=== PATIENT | male | born 1970 | race Caucasian/White ===

== ENCOUNTER 2019-01-07 12:28 | Observation (INO) | payer BC, OTHER ==
[2019-01-07] MEDS ORDERED: Sodium Chloride 0.9% 10 ML Syringe FLUSH PRN (12:38)
[2019-01-07] MEDS ORDERED: Sodium Chloride 0.9% 2.5 ML Syringe FLUSH PRN (12:38)
[2019-01-07] MEDS ORDERED: Diltiazem 25 MG/5 ML SDV IVPUSH ONE ×2 (12:38→14:16)
--- NOTE | 2019-01-07 13:18 | CR ---
Indication: Pain. Shortness breath. Technique: A single AP portable view of the chest was obtained. Comparison: None Findings: The heart is normal in size. The lungs are clear. No infiltrate, pleural effusion, or pneumothorax is identified. Impression: No acute cardiopulmonary process. Dictated by Marzena Staples MD @ Jan 07 2019 1:15PM Signed by Dr. Marzena Staples @ Jan 07 2019 1:16PM
[2019-01-07 13:23] LABS: CHLORIDE,CL 104 mmol/L (98-107); SODIUM,NA 140 mmol/L (136-148)
--- NOTE | 2019-01-07 14:27 | EDM.PDOC ---
ED HPI GENERAL MEDICAL PROBLEM - General Chief Complaint: Chest Pain Stated Complaint: CHEST PAIN Time Seen by Provider: 01/07/19 12:37 Source of Information: Reports: Patient History Limitations: Reports: No Limitations - History of Present Illness INITIAL COMMENTS - FREE TEXT/NARRATIVE: History of present illness: []Patient has a history of A. fib on metoprolol he started feeling palpitations this morning with chest pain radiating down his left arm. He denied any sweats, dizziness or syncope. By Dr. Jackson and apparently right before his appointment he converted to sinus rhythm. Review of systems: As per history of present illness and below otherwise all systems reviewed and negative. Past medical history: As per history of present illness and as reviewed below otherwise noncontributory. Surgical history: As per history of present illness and as reviewed below otherwise noncontributory. Social history: No reported history of drug or alcohol abuse. Family history: As per history of present illness and as reviewed below otherwise noncontributory. Physical exam: General: Well developed, well nourished in NAD HEENT: Atraumatic, normocephalic, pupils reactive, negative for conjunctival pallor or scleral icterus, mucous membranes moist, throat clear, neck supple, nontender, trachea midline. Lungs: Clear to auscultation, breath sounds equal bilaterally, chest nontender. Heart: S1S2, regular, negative for clicks, rubs, or JVD. Abdomen: NABS, Soft, nondistended, nontender. Negative for masses or hepatosplenomegaly. Negative for costovertebral tenderness. Pelvis: Stable nontender. Genitourinary: Deferred. Rectal: Deferred. Extremities: Atraumatic, negative for cords or calf pain. Neurovascular unremarkable. Neuro: Awake, alert, oriented. Cranial nerves II through XII unremarkable. Cerebellum unremarkable. Motor and sensory unremarkable throughout. Exam nonfocal. Skin:warm and dry Diagnostics: EKG, CBC, chemistry, troponin, chest x-ray Therapeutics: Diltiazem 2 doses ED Course: Patient with transient episode of hypotension and bradycardia after second dose of diltiazem Impression: A. fib Prescriptions: None Plan: Admit to [facility] telemetry for observation after hypotensive episode Definitive disposition and diagnosis as appropriate pending reevaluation and review of above. Chest Pain Score (Numeric/FACES): 8 - Related Data Allergies Allergy/AdvReac Type Severity Reaction Status Date / Time No Known Allergies Allergy Verified 01/07/19 12:36 Home Meds: Home Meds Metoprolol Succinate [Toprol XL 50mg] 50 mg PO DAILY 30 Days #30 tab.er [Rx] Aspirin 81 mg PO DAILY 01/07/19 [History] Levothyroxine [Synthroid] 50 mcg PO ACBREAKFAST 01/07/19 [History] Simvastatin 10 mg PO BEDTIME 01/07/19 [History] Past Medical History Cardiovascular History: Reports: Afib - Infectious Disease History Infectious Disease History: Reports: None - Past Surgical History GI Surgical History: Reports: Appendectomy Musculoskeletal Surgical History: Reports: Other (See Below) Other Musculoskeletal Surgeries/Procedures:: left elbow sx Social & Family History - Family History Family Medical History: Noncontributory - Tobacco Use Smoking Status *Q: Never Smoker - Caffeine Use Caffeine Use: Reports: Coffee - Recreational Drug Use Recreational Drug Use: No ED ROS GENERAL - Review of Systems Review Of Systems: ROS reveals no pertinent complaints other than HPI. ED EXAM, GENERAL - Physical Exam Exam: See Below (The history of present illness) Course - Vital Signs Last Recorded V/S: Last Vital Signs Temp 97.4 F 01/08/19 04:00 Pulse 90 01/08/19 06:48 Resp 20 01/08/19 06:48 BP 112/61 01/08/19 06:48 Pulse Ox 94 L 01/08/19 06:48 - Orders/Labs/Meds Orders: Active Orders 24 hr Category Date Time Status Cardiac Monitoring [RC] . DIRECTED Care 01/07/19 12:37 Active EKG Documentation Completion [RC] STAT Care 01/07/19 12:37 Active Sodium Chloride 0.9% [Saline Flush] Med 01/07/19 12:38 Active 10 ml FLUSH ASDIRECTED PRN Sodium Chloride 0.9% [Saline Flush] Med 01/07/19 12:38 Active 2.5 ml FLUSH ASDIRECTED PRN Saline Lock Insert [OM.PC] Stat Oth 01/07/19 12:37 Ordered Medication Orders Aspirin (Aspirin) 81 mg PO DAILY [facility] Enoxaparin Sodium (Lovenox) 40 mg SUBCUT Q24H [facility] Last Admin: 01/07/19 18:54 Dose: 40 mg Diltiazem HCl 125 mg/ Sodium (Chloride) 125 mls @ 5 mls/hr IV TITRATE [facility]; Protocol Levothyroxine Sodium (Synthroid) 50 mcg PO ACBREAKFAST [facility] Last Admin: 01/08/19 06:35 Dose: 50 mcg Metoprolol Succinate (Toprol Xl) 75 mg PO DAILY [facility] Last Admin: 01/08/19 06:35 Dose: 75 mg Simvastatin (Zocor) 10 mg PO BEDTIME [facility] Last Admin: 01/07/19 21:23 Dose: 10 mg Sodium Chloride (Saline Flush) 10 ml FLUSH ASDIRECTED PRN PRN Reason: Keep Vein Open Last Admin: 01/07/19 13:12 Dose: 10 ml Sodium Chloride (Saline Flush) 2.5 ml FLUSH ASDIRECTED PRN PRN Reason: Keep Vein Open Last Admin: 01/07/19 13:12 Dose: 2.5 ml Labs: Laboratory Tests 01/07/19 01/07/19 01/07/19 Range/Units 12:52 12:52 12:52 WBC 8.97 (4.0-11.0) K/uL RBC 5.35 (4.50-5.90) M/uL Hgb 16.8 (13.0-17.0) g/dL Hct 48.2 (38.0-50.0) % MCV 90.1 (80.0-98.0) fL MCH 31.4 (27.0-32.0) pg MCHC 34.9 (31.0-37.0) g/dL RDW Std Deviation 41.9 (28.0-62.0) fl RDW Coeff of Cyndi 13 (11.0-15.0) % Plt Count 149 L (150-400) K/uL MPV 11.20 (7.40-12.00) fL Neut % (Auto) 55.1 (48.0-80.0) % Lymph % (Auto) 34.1 (16.0-40.0) % [place] % (Auto) 9.7 (0.0-15.0) % Eos % (Auto) 0.9 (0.0-7.0) % Baso % (Auto) 0.2 (0.0-1.5) % Neut # (Auto) 4.9 (1.4-5.7) K/uL Lymph # (Auto) 3.1 H (0.6-2.4) K/uL [place] # (Auto) 0.9 H (0.0-0.8) K/uL Eos # (Auto) 0.1 (0.0-0.7) K/uL Baso # (Auto) 0.0 (0.0-0.1) K/uL Nucleated RBC % 0.0 /100WBC Nucleated RBCs # 0 K/uL Sodium 140 (136-148) mmol/L Potassium 4.6 (3.5-5.1) mmol/L Chloride 104 (98-107) mmol/L Carbon Dioxide 27.2 (21.0-32.0) mmol/L BUN 22 H (7.0-18.0) mg/dL Creatinine 1.3 (0.8-1.3) mg/dL Est Cr Clr Drug Dosing 70.97 mL/min Estimated GFR (MDRD) 58.7 ml/min Glucose 162 H (74-106) mg/dL Calcium 9.4 (8.5-10.1) mg/dL Magnesium 2.0 (1.8-2.4) mg/dL Total Bilirubin 0.4 (0.2-1.0) mg/dL AST 16 (15-37) IU/L ALT 53 (14-63) IU/L Alkaline Phosphatase 70 (46-116) U/L Troponin I < 0.050 (0.000-0.056) ng/mL Total Protein 7.6 (6.4-8.2) g/dL Albumin 3.7 (3.4-5.0) g/dL Globulin 3.9 (2.6-4.0) g/dL Albumin/Globulin Ratio 0.9 (0.9-1.6) Meds: Medications Generic Name Dose Route Start Last Admin Trade Name Freq PRN Reason Stop Dose Admin Aspirin 81 mg 01/08/19 09:00 Aspirin PO DAILY [facility] Enoxaparin Sodium 40 mg 01/07/19 18:00 01/07/19 18:54 Lovenox SUBCUT 40 mg Q24H [facility] Administration Diltiazem HCl 125 mg/ Sodium 125 mls @ 5 mls/hr 01/07/19 18:30 Chloride IV TITRATE [facility] Protocol 5 MG/HR Levothyroxine Sodium 50 mcg 01/08/19 07:30 01/08/19 06:35 Synthroid PO 50 mcg ACBREAKFAST [facility] Administration Metoprolol Succinate 75 mg 01/08/19 06:15 01/08/19 06:35 Toprol Xl PO 75 mg DAILY [facility] Administration Simvastatin 10 mg 01/07/19 21:00 01/07/19 21:23 Zocor PO 10 mg BEDTIME [facility] Administration Sodium Chloride 10 ml 01/07/19 12:38 01/07/19 13:12 Saline Flush FLUSH 10 ml ASDIRECTED PRN Administration Keep Vein Open Sodium Chloride 2.5 ml 01/07/19 12:38 01/07/19 13:12 Saline Flush FLUSH 2.5 ml ASDIRECTED PRN Administration Keep Vein Open Discontinued Medications Generic Name Dose Route Start Last Admin Trade Name Freq PRN Reason Stop Dose Admin Digoxin 250 mcg 01/07/19 18:17 01/07/19 18:55 Lanoxin IVPUSH 01/07/19 18:18 250 mcg ONETIME ONE Administration Diltiazem HCl 20 mg 01/07/19 12:38 01/07/19 13:03 Diltiazem IVPUSH 01/07/19 12:39 20 mg ONETIME ONE Administration Diltiazem HCl 20 mg 01/07/19 14:16 01/07/19 14:36 Diltiazem IVPUSH 01/07/19 14:17 20 mg ONETIME ONE Administration Sodium Chloride 1,000 mls @ 999 mls/hr 01/07/19 15:45 01/07/19 15:46 Normal Saline IV 01/07/19 16:45 999 mls/hr .BOLUS ONE Administration Sodium Chloride 1,000 mls @ 125 mls/hr 01/07/19 18:18 01/07/19 20:01 Normal Saline IV 01/08/19 02:17 125 mls/hr .Bolus ONE Administration Metoprolol Succinate 100 mg 01/08/19 09:00 Toprol Xl PO DAILY [facility] Metoprolol Tartrate 25 mg 01/07/19 18:18 01/07/19 18:52 Lopressor PO 01/07/19 18:19 25 mg ONETIME ONE Administration Departure - Departure Time of Disposition: 15:55 Disposition: Refer to Observation Condition: Good Clinical Impression: Atrial fibrillation Qualifiers: Atrial fibrillation type: paroxysmal Qualified Code(s): I48.0 - Paroxysmal atrial fibrillation - My Orders Last 24 Hours: My Active Orders 01/07/19 12:37 Cardiac Monitoring [RC] . DIRECTED EKG Documentation Completion [RC] STAT Saline Lock Insert [OM.PC] Stat 01/07/19 12:38 Sodium Chloride 0.9% [Saline Flush] 10 ml FLUSH ASDIRECTED PRN Sodium Chloride 0.9% [Saline Flush] 2.5 ml FLUSH ASDIRECTED PRN - Assessment/Plan Last 24 Hours: My Active Orders 01/07/19 12:37 Cardiac Monitoring [RC] . DIRECTED EKG Documentation Completion [RC] STAT Saline Lock Insert [OM.PC] Stat 01/07/19 12:38 Sodium Chloride 0.9% [Saline Flush] 10 ml FLUSH ASDIRECTED PRN Sodium Chloride 0.9% [Saline Flush] 2.5 ml FLUSH ASDIRECTED PRN
[2019-01-07] MEDS ORDERED: Sodium Chloride 0.9% 1,000 ML IV ONE ×2 (15:45→18:18)
[2019-01-07] MEDS ORDERED: Enoxaparin 40 MG/0.4 ML Syringe SUBCUT SCH (18:00)
[2019-01-07] MEDS ORDERED: Digoxin 500 MCG/2 ML Amp IVPUSH ONE (18:17)
[2019-01-07] MEDS ORDERED: Metoprolol Tartrate 25 MG Tab PO ONE (18:18)
[2019-01-07] MEDS ORDERED: Diltiazem 125 MG in Sodium Chloride 0.9% 100 ML IV SCH (18:30)
--- NOTE | 2019-01-07 18:36 | PCM.HP ---
H&P History of Present Illness - General Date of Service: 01/07/19 Admit Problem/Dx: Admission Diagnosis/Problem Admission Diagnosis/Problem Atrial fibrillation - History of Present Illness Initial Comments - Free Text/Narative: 48 yo male who presents with one day history of palpitations and dizziness. He has a history of atrial fibrillation but reports he had been in normal sinus rhythm during his last check up with Dr. Keys. He is on metoprolol and aspirin. In the ED he was noted to be in atrial fibrillation with rate of 100s to 130s. he was given IV diltiazem but this lower his blood pressure to 75 /48. He was given a bolus of IV fluids with normalization of blood pressure. His heart improved and he was transfered to the floor. Patient is now on the medical floor and is complaining of palpitations again. His heart rate is in the 100s to 130s. Chest Pain Score (Numeric/FACES): 8 - Related Data Allergies/Adverse Reactions: Allergies Allergy/AdvReac Type Severity Reaction Status Date / Time No Known Allergies Allergy Verified 01/07/19 12:36 Home Medications: Home Meds Metoprolol Succinate [Toprol XL 50mg] 50 mg PO DAILY 30 Days #30 tab.er [Rx] Aspirin 81 mg PO DAILY 01/07/19 [History] Levothyroxine [Synthroid] 50 mcg PO ACBREAKFAST 01/07/19 [History] Simvastatin 10 mg PO BEDTIME 01/07/19 [History] Past Medical History Cardiovascular History: Reports: Afib Respiratory History: Reports: Sleep Apnea Other Respiratory History: Uses CPAP - Infectious Disease History Infectious Disease History: Reports: None - Past Surgical History GI Surgical History: Reports: Appendectomy Musculoskeletal Surgical History: Reports: Other (See Below) Other Musculoskeletal Surgeries/Procedures:: left elbow sx Social & Family History - Family History Family Medical History: Noncontributory - Tobacco Use Smoking Status *Q: Never Smoker Second Hand Smoke Exposure: No - Caffeine Use Caffeine Use: Reports: None - Recreational Drug Use Recreational Drug Use: No H&P Review of Systems - Review of Systems: Review Of Systems: ROS reveals no pertinent complaints other than HPI. Exam - Exam Exam: See Below - Vital Signs Vital Signs: Last Vital Signs Temp 36.6 C 01/07/19 16:00 Pulse 76 01/07/19 16:00 Resp 18 01/07/19 16:00 BP 114/60 01/07/19 16:00 Pulse Ox 96 01/07/19 16:00 Weight: 7.34 kg - Exam General: Alert, Oriented HEENT: Mucosa Moist & [place] Lungs: Clear to Auscultation, Normal Respiratory Effort Cardiovascular: Irregular Rhythm, Tachycardia GI/Abdominal Exam: Normal Bowel Sounds, Soft, Non-Tender Extremities: Non-Tender, No Pedal Edema Skin: Warm, Dry, Intact Neurological: Cranial Nerves Intact Neuro Extensive - Mental Status: Alert - Patient Data Lab Results Last 24 hrs: Laboratory Results - last 24 hr 01/07/19 01/07/19 01/07/19 Range/Units 12:52 12:52 12:52 WBC 8.97 (4.0-11.0) K/uL RBC 5.35 (4.50-5.90) M/uL Hgb 16.8 (13.0-17.0) g/dL Hct 48.2 (38.0-50.0) % MCV 90.1 (80.0-98.0) fL MCH 31.4 (27.0-32.0) pg MCHC 34.9 (31.0-37.0) g/dL RDW Std Deviation 41.9 (28.0-62.0) fl RDW Coeff of Cyndi 13 (11.0-15.0) % Plt Count 149 L (150-400) K/uL MPV 11.20 (7.40-12.00) fL Neut % (Auto) 55.1 (48.0-80.0) % Lymph % (Auto) 34.1 (16.0-40.0) % [place] % (Auto) 9.7 (0.0-15.0) % Eos % (Auto) 0.9 (0.0-7.0) % Baso % (Auto) 0.2 (0.0-1.5) % Neut # (Auto) 4.9 (1.4-5.7) K/uL Lymph # (Auto) 3.1 H (0.6-2.4) K/uL [place] # (Auto) 0.9 H (0.0-0.8) K/uL Eos # (Auto) 0.1 (0.0-0.7) K/uL Baso # (Auto) 0.0 (0.0-0.1) K/uL Nucleated RBC % 0.0 /100WBC Nucleated RBCs # 0 K/uL Sodium 140 (136-148) mmol/L Potassium 4.6 (3.5-5.1) mmol/L Chloride 104 (98-107) mmol/L Carbon Dioxide 27.2 (21.0-32.0) mmol/L BUN 22 H (7.0-18.0) mg/dL Creatinine 1.3 (0.8-1.3) mg/dL Est Cr Clr Drug Dosing 70.97 mL/min Estimated GFR (MDRD) 58.7 ml/min Glucose 162 H (74-106) mg/dL Calcium 9.4 (8.5-10.1) mg/dL Magnesium 2.0 (1.8-2.4) mg/dL Total Bilirubin 0.4 (0.2-1.0) mg/dL AST 16 (15-37) IU/L ALT 53 (14-63) IU/L Alkaline Phosphatase 70 (46-116) U/L Troponin I < 0.050 (0.000-0.056) ng/mL Total Protein 7.6 (6.4-8.2) g/dL Albumin 3.7 (3.4-5.0) g/dL Globulin 3.9 (2.6-4.0) g/dL Albumin/Globulin Ratio 0.9 (0.9-1.6) Result Diagrams: 01/08/19 05:07 01/08/19 05:07 Problem List Initiated/Reviewed/Updated: Yes Orders Last 24hrs: Active Orders 24 hr Category Date Time Status Patient Status [ADT] Routine ADT 01/07/19 18:29 Ordered Antiembolic Devices [RC] PER UNIT ROUTINE Care 01/07/19 18:30 Ordered Cardiac Monitoring [RC] . DIRECTED Care 01/07/19 12:37 Active EKG Documentation Completion [RC] STAT Care 01/07/19 12:37 Active Oxygen Therapy [RC] PRN Care 01/07/19 18:29 Ordered Telemetry Monitoring [Cardiac Monitoring] [RC] Q8H Care 01/07/19 12:37 Active Up ad Anjali [RC] ASDIRECTED Care 01/07/19 18:29 Ordered VTE/DVT Education [RC] PER UNIT ROUTINE Care 01/07/19 18:29 Ordered Vital Signs [RC] Q4H Care 01/07/19 18:29 Ordered Regular Diet [DIET] Diet 01/08/19 Dinner Active BASIC METABOLIC PANEL,BMP [CHEM] AM Lab 01/08/19 05:11 Ordered CBC WITH AUTO DIFF [HEME] AM Lab 01/08/19 05:11 Ordered Diltiazem 125 mg Med 01/07/19 18:30 Ordered Sodium Chloride 0.9% [Normal Saline] 100 ml IV NOW Enoxaparin [Lovenox] Med 01/07/19 18:30 Ordered 40 mg SUBCUT Q24H Levothyroxine [Synthroid] Med 01/08/19 07:30 Ordered 50 mcg PO ACBREAKFAST Simvastatin [Zocor] Med 01/07/19 21:00 Ordered 10 mg PO BEDTIME Sodium Chloride 0.9% [Normal Saline] 1,000 ml Med 01/07/19 18:18 Active IV .Bolus Sodium Chloride 0.9% [Saline Flush] Med 01/07/19 12:38 Active 10 ml FLUSH ASDIRECTED PRN Sodium Chloride 0.9% [Saline Flush] Med 01/07/19 12:38 Active 2.5 ml FLUSH ASDIRECTED PRN Saline Lock Insert [OM.PC] Stat Oth 01/07/19 12:37 Ordered Sequential Compression Device [OM.PC] Per Unit Routine Oth 01/07/19 18:30 Ordered Resuscitation Status Routine Resus Stat 01/07/19 18:29 Ordered Medication Orders Sodium Chloride (Normal Saline) 1,000 mls @ 125 mls/hr IV .Bolus ONE Stop: 01/08/19 02:17 Diltiazem HCl 125 mg/ Sodium (Chloride) 125 mls @ 5 mls/hr IV TITRATE [facility]; Protocol Levothyroxine Sodium (Synthroid) 50 mcg PO ACBREAKFAST [facility] Simvastatin (Zocor) 10 mg PO BEDTIME [facility] Sodium Chloride (Saline Flush) 10 ml FLUSH ASDIRECTED PRN PRN Reason: Keep Vein Open Last Admin: 01/07/19 13:12 Dose: 10 ml Sodium Chloride (Saline Flush) 2.5 ml FLUSH ASDIRECTED PRN PRN Reason: Keep Vein Open Last Admin: 01/07/19 13:12 Dose: 2.5 ml Assessment/Plan Comment:: 48 yo male admitted with atrial fibrillation with RVR. Due to the low blood pressures in the ED will transfer to ICU and start a diltiazem drip for better rate control. We will start digoxin and continue oral metoprolol.
[2019-01-07] MEDS ORDERED: Simvastatin 10 MG Tab PO SCH (21:00)
[2019-01-08 05:54] LABS: CHLORIDE,CL 107 mmol/L (98-107); SODIUM,NA 141 mmol/L (136-148)
--- NOTE | 2019-01-08 06:18 | PCM.PN ---
- General Info Date of Service: 01/08/19 - Review of Systems Systems Review Comment:: denies any palpitations or shortness of breath. - Patient Data Vitals - Most Recent: Last Vital Signs Temp 36.7 C 01/08/19 00:00 Pulse 99 01/08/19 02:00 Resp 19 01/08/19 02:00 BP 106/65 01/08/19 02:00 Pulse Ox 94 L 01/08/19 02:00 Weight - Most Recent: 116.21 kg Lab Results Last 24 Hours: Laboratory Results - last 24 hr 01/07/19 01/07/19 01/07/19 Range/Units 12:52 12:52 12:52 WBC 8.97 (4.0-11.0) K/uL RBC 5.35 (4.50-5.90) M/uL Hgb 16.8 (13.0-17.0) g/dL Hct 48.2 (38.0-50.0) % MCV 90.1 (80.0-98.0) fL MCH 31.4 (27.0-32.0) pg MCHC 34.9 (31.0-37.0) g/dL RDW Std Deviation 41.9 (28.0-62.0) fl RDW Coeff of Cyndi 13 (11.0-15.0) % Plt Count 149 L (150-400) K/uL MPV 11.20 (7.40-12.00) fL Neut % (Auto) 55.1 (48.0-80.0) % Lymph % (Auto) 34.1 (16.0-40.0) % [place] % (Auto) 9.7 (0.0-15.0) % Eos % (Auto) 0.9 (0.0-7.0) % Baso % (Auto) 0.2 (0.0-1.5) % Neut # (Auto) 4.9 (1.4-5.7) K/uL Lymph # (Auto) 3.1 H (0.6-2.4) K/uL [place] # (Auto) 0.9 H (0.0-0.8) K/uL Eos # (Auto) 0.1 (0.0-0.7) K/uL Baso # (Auto) 0.0 (0.0-0.1) K/uL Nucleated RBC % 0.0 /100WBC Nucleated RBCs # 0 K/uL Sodium 140 (136-148) mmol/L Potassium 4.6 (3.5-5.1) mmol/L Chloride 104 (98-107) mmol/L Carbon Dioxide 27.2 (21.0-32.0) mmol/L BUN 22 H (7.0-18.0) mg/dL Creatinine 1.3 (0.8-1.3) mg/dL Est Cr Clr Drug Dosing 70.97 mL/min Estimated GFR (MDRD) 58.7 ml/min Glucose 162 H (74-106) mg/dL Calcium 9.4 (8.5-10.1) mg/dL Magnesium 2.0 (1.8-2.4) mg/dL Total Bilirubin 0.4 (0.2-1.0) mg/dL AST 16 (15-37) IU/L ALT 53 (14-63) IU/L Alkaline Phosphatase 70 (46-116) U/L Troponin I < 0.050 (0.000-0.056) ng/mL Total Protein 7.6 (6.4-8.2) g/dL Albumin 3.7 (3.4-5.0) g/dL Globulin 3.9 (2.6-4.0) g/dL Albumin/Globulin Ratio 0.9 (0.9-1.6) 01/07/19 01/08/19 01/08/19 Range/Units 20:14 01:40 05:07 WBC 11.46 H (4.0-11.0) K/uL RBC 5.11 (4.50-5.90) M/uL Hgb 16.1 (13.0-17.0) g/dL Hct 46.2 (38.0-50.0) % MCV 90.4 (80.0-98.0) fL MCH 31.5 (27.0-32.0) pg MCHC 34.8 (31.0-37.0) g/dL RDW Std Deviation 42.5 (28.0-62.0) fl RDW Coeff of Cyndi 13 (11.0-15.0) % Plt Count 153 (150-400) K/uL MPV 11.40 (7.40-12.00) fL Neut % (Auto) 53.2 (48.0-80.0) % Lymph % (Auto) 35.7 (16.0-40.0) % [place] % (Auto) 10.1 (0.0-15.0) % Eos % (Auto) 0.8 (0.0-7.0) % Baso % (Auto) 0.2 (0.0-1.5) % Neut # (Auto) 6.1 H (1.4-5.7) K/uL Lymph # (Auto) 4.1 H (0.6-2.4) K/uL [place] # (Auto) 1.2 H (0.0-0.8) K/uL Eos # (Auto) 0.1 (0.0-0.7) K/uL Baso # (Auto) 0.0 (0.0-0.1) K/uL Nucleated RBC % 0.0 /100WBC Nucleated RBCs # 0 K/uL Sodium (136-148) mmol/L Potassium (3.5-5.1) mmol/L Chloride (98-107) mmol/L Carbon Dioxide (21.0-32.0) mmol/L BUN (7.0-18.0) mg/dL Creatinine (0.8-1.3) mg/dL Est Cr Clr Drug Dosing mL/min Estimated GFR (MDRD) ml/min Glucose (74-106) mg/dL Calcium (8.5-10.1) mg/dL Magnesium (1.8-2.4) mg/dL Total Bilirubin (0.2-1.0) mg/dL AST (15-37) IU/L ALT (14-63) IU/L Alkaline Phosphatase (46-116) U/L Troponin I < 0.050 < 0.050 (0.000-0.056) ng/mL Total Protein (6.4-8.2) g/dL Albumin (3.4-5.0) g/dL Globulin (2.6-4.0) g/dL Albumin/Globulin Ratio (0.9-1.6) 01/08/19 Range/Units 05:07 WBC (4.0-11.0) K/uL RBC (4.50-5.90) M/uL Hgb (13.0-17.0) g/dL Hct (38.0-50.0) % MCV (80.0-98.0) fL MCH (27.0-32.0) pg MCHC (31.0-37.0) g/dL RDW Std Deviation (28.0-62.0) fl RDW Coeff of Cyndi (11.0-15.0) % Plt Count (150-400) K/uL MPV (7.40-12.00) fL Neut % (Auto) (48.0-80.0) % Lymph % (Auto) (16.0-40.0) % [place] % (Auto) (0.0-15.0) % Eos % (Auto) (0.0-7.0) % Baso % (Auto) (0.0-1.5) % Neut # (Auto) (1.4-5.7) K/uL Lymph # (Auto) (0.6-2.4) K/uL [place] # (Auto) (0.0-0.8) K/uL Eos # (Auto) (0.0-0.7) K/uL Baso # (Auto) (0.0-0.1) K/uL Nucleated RBC % /100WBC Nucleated RBCs # K/uL Sodium 141 (136-148) mmol/L Potassium 4.2 (3.5-5.1) mmol/L Chloride 107 (98-107) mmol/L Carbon Dioxide 23.3 (21.0-32.0) mmol/L BUN 18 (7.0-18.0) mg/dL Creatinine 1.2 (0.8-1.3) mg/dL Est Cr Clr Drug Dosing 76.89 mL/min Estimated GFR (MDRD) > 60.0 ml/min Glucose 131 H (74-106) mg/dL Calcium 8.6 (8.5-10.1) mg/dL Magnesium (1.8-2.4) mg/dL Total Bilirubin (0.2-1.0) mg/dL AST (15-37) IU/L ALT (14-63) IU/L Alkaline Phosphatase (46-116) U/L Troponin I (0.000-0.056) ng/mL Total Protein (6.4-8.2) g/dL Albumin (3.4-5.0) g/dL Globulin (2.6-4.0) g/dL Albumin/Globulin Ratio (0.9-1.6) Med Orders - Current: Current Medications Enoxaparin Sodium (Lovenox) 40 mg SUBCUT Q24H [facility] Last Admin: 01/07/19 18:54 Dose: 40 mg Diltiazem HCl 125 mg/ Sodium (Chloride) 125 mls @ 5 mls/hr IV TITRATE [facility]; Protocol Levothyroxine Sodium (Synthroid) 50 mcg PO ACBREAKFAST [facility] Metoprolol Succinate (Toprol Xl) 75 mg PO DAILY [facility] Simvastatin (Zocor) 10 mg PO BEDTIME [facility] Last Admin: 01/07/19 21:23 Dose: 10 mg Sodium Chloride (Saline Flush) 10 ml FLUSH ASDIRECTED PRN PRN Reason: Keep Vein Open Last Admin: 01/07/19 13:12 Dose: 10 ml Sodium Chloride (Saline Flush) 2.5 ml FLUSH ASDIRECTED PRN PRN Reason: Keep Vein Open Last Admin: 01/07/19 13:12 Dose: 2.5 ml Discontinued Medications Digoxin (Lanoxin) 250 mcg IVPUSH ONETIME ONE Stop: 01/07/19 18:18 Last Admin: 01/07/19 18:55 Dose: 250 mcg Diltiazem HCl (Diltiazem) 20 mg IVPUSH ONETIME ONE Stop: 01/07/19 12:39 Last Admin: 01/07/19 13:03 Dose: 20 mg Diltiazem HCl (Diltiazem) 20 mg IVPUSH ONETIME ONE Stop: 01/07/19 14:17 Last Admin: 01/07/19 14:36 Dose: 20 mg Sodium Chloride (Normal Saline) 1,000 mls @ 999 mls/hr IV .BOLUS ONE Stop: 01/07/19 16:45 Last Admin: 01/07/19 15:46 Dose: 999 mls/hr Sodium Chloride (Normal Saline) 1,000 mls @ 125 mls/hr IV .Bolus ONE Stop: 01/08/19 02:17 Last Admin: 01/07/19 20:01 Dose: 125 mls/hr Metoprolol Succinate (Toprol Xl) 100 mg PO DAILY [facility] Metoprolol Tartrate (Lopressor) 25 mg PO ONETIME ONE Stop: 01/07/19 18:19 Last Admin: 01/07/19 18:52 Dose: 25 mg - Exam General: Alert, Oriented Neck: Supple Lungs: Clear to Auscultation, Normal Respiratory Effort Cardiovascular: Regular Rate, Regular Rhythm GI/Abdominal Exam: Soft, Non-Tender Extremities: Non-Tender, No Pedal Edema Skin: Warm, Dry, Intact - Problem List Review Problem List Initiated/Reviewed/Updated: Yes - My Orders Last 24 Hours: My Active Orders 01/07/19 12:37 Telemetry Monitoring [Cardiac Monitoring] [RC] Q8H 01/07/19 18:00 Enoxaparin [Lovenox] 40 mg SUBCUT Q24H 01/07/19 18:29 Patient Status [ADT] Routine Oxygen Therapy [RC] PRN Up ad Anjali [RC] ASDIRECTED VTE/DVT Education [RC] PER UNIT ROUTINE Vital Signs [RC] Q1H Resuscitation Status Routine 01/07/19 18:30 Antiembolic Devices [RC] PER UNIT ROUTINE Diltiazem 125 mg Sodium Chloride 0.9% [Normal Saline] 100 ml IV TITRATE Sequential Compression Device [OM.PC] Per Unit Routine 01/07/19 21:00 Simvastatin [Zocor] 10 mg PO BEDTIME 01/08/19 06:15 Metoprolol Succinate [Toprol XL] 75 mg PO DAILY 01/08/19 07:30 Levothyroxine [Synthroid] 50 mcg PO ACBREAKFAST 01/08/19 Dinner Regular Diet [DIET] - Plan Plan:: 48 yo male admitted with atrial fibrillation with RVR. His heart rate is in the 90s-110s after he woke up this morning. His diltiazem drip was not started. We will increase his metoprolol to 75mg daily and continue to monitor BP and HR. If he remains stable may go home later today or tomorrow.
[2019-01-08] MEDS: Metoprolol Succinate 50 MG Tab.ER PO SCH ×2 (06:35→09:01)
[2019-01-08] MEDS ORDERED: Levothyroxine 50 MCG Tab PO SCH (07:30)
[2019-01-08] MEDS ORDERED: Metoprolol Succinate 50 MG Tab.ER PO SCH (09:00)
[2019-01-08] MEDS ORDERED: Aspirin 81 MG Tab.Chew PO SCH (09:00)
--- NOTE | 2019-01-08 11:00 | PCM.DCSUM1 ---
Discharge Summary - Discharge Data Discharge Date: 01/08/19 Discharge Disposition: Home, Self-Care 01 Condition: Good - Patient Summary/Data Hospital Course: 48 yo male with pmh of paroxysmal atrial fibrillation who was admitted for atrial fibrillation with RVR. He presented with one day history of palpitations and dizziness. He reported he had been in normal sinus rhythm during his last check up with Dr. Keys. He is on metoprolol 50mg daily and aspirin. In the ED he was noted to be in atrial fibrillation with rate of 100s to 130s. he was given IV diltiazem but this lower his blood pressure to 75/48. He was given a bolus of IV fluids with normalization of blood pressure. The patient was transferred to the ICU for rate control with diltiazem drip but this was not started as his rate was better controlled with an additional oral metoprolol dose of 25mg. He was monitored overnight and this morning and his heart rate and blood pressure remained stable. He was discharged home with an increase in his metoprolol XL to 75mg daily. He is to follow up with Dr. Keys. - Patient Instructions Diet: Regular Diet as Tolerated Activity: As Tolerated Driving: May Drive Today Showering/Bathing: May Shower - Discharge Plan Prescriptions/Med Rec: Metoprolol Succinate [Toprol Xl] 25 mg PO DAILY #30 tab.er.24h Home Medications: Home Meds Metoprolol Succinate [Toprol XL 50mg] 50 mg PO DAILY 30 Days #30 tab.er [Rx] Aspirin 81 mg PO DAILY 01/07/19 [History] Levothyroxine [Synthroid] 50 mcg PO ACBREAKFAST 01/07/19 [History] Simvastatin 10 mg PO BEDTIME 01/07/19 [History] Metoprolol Succinate [Toprol Xl] 25 mg PO DAILY #30 tab.er.24h 01/08/19 [Rx] Patient Handouts: Metoprolol tablets, Atrial Fibrillation, [id number] Referrals: Yossi Kc MD [Physician] - Wesley Herbert Jr, PA-C [Primary Care Provider] - 01/15/19 2:30 pm - Discharge Summary/Plan Comment DC Time >30 min.: No - Patient Data Vitals - Most Recent: Last Vital Signs Temp 36.9 C 01/08/19 08:00 Pulse 90 01/08/19 06:48 Resp 21 H 01/08/19 10:00 BP 115/62 01/08/19 10:00 Pulse Ox 92 L 01/08/19 10:00 Weight - Most Recent: 115.212 kg I&O - Last 24 hours: Intake & Output 01/07/19 01/08/19 01/08/19 22:59 06:59 14:59 Intake Total 1670 Output Total 900 Balance 770 Lab Results - Last 24 hrs: Laboratory Results - last 24 hr 01/07/19 01/07/19 01/07/19 Range/Units 12:52 12:52 12:52 WBC 8.97 (4.0-11.0) K/uL RBC 5.35 (4.50-5.90) M/uL Hgb 16.8 (13.0-17.0) g/dL Hct 48.2 (38.0-50.0) % MCV 90.1 (80.0-98.0) fL MCH 31.4 (27.0-32.0) pg MCHC 34.9 (31.0-37.0) g/dL RDW Std Deviation 41.9 (28.0-62.0) fl RDW Coeff of Cyndi 13 (11.0-15.0) % Plt Count 149 L (150-400) K/uL MPV 11.20 (7.40-12.00) fL Neut % (Auto) 55.1 (48.0-80.0) % Lymph % (Auto) 34.1 (16.0-40.0) % [place] % (Auto) 9.7 (0.0-15.0) % Eos % (Auto) 0.9 (0.0-7.0) % Baso % (Auto) 0.2 (0.0-1.5) % Neut # (Auto) 4.9 (1.4-5.7) K/uL Lymph # (Auto) 3.1 H (0.6-2.4) K/uL [place] # (Auto) 0.9 H (0.0-0.8) K/uL Eos # (Auto) 0.1 (0.0-0.7) K/uL Baso # (Auto) 0.0 (0.0-0.1) K/uL Nucleated RBC % 0.0 /100WBC Nucleated RBCs # 0 K/uL Sodium 140 (136-148) mmol/L Potassium 4.6 (3.5-5.1) mmol/L Chloride 104 (98-107) mmol/L Carbon Dioxide 27.2 (21.0-32.0) mmol/L BUN 22 H (7.0-18.0) mg/dL Creatinine 1.3 (0.8-1.3) mg/dL Est Cr Clr Drug Dosing 70.97 mL/min Estimated GFR (MDRD) 58.7 ml/min Glucose 162 H (74-106) mg/dL Calcium 9.4 (8.5-10.1) mg/dL Magnesium 2.0 (1.8-2.4) mg/dL Total Bilirubin 0.4 (0.2-1.0) mg/dL AST 16 (15-37) IU/L ALT 53 (14-63) IU/L Alkaline Phosphatase 70 (46-116) U/L Troponin I < 0.050 (0.000-0.056) ng/mL Total Protein 7.6 (6.4-8.2) g/dL Albumin 3.7 (3.4-5.0) g/dL Globulin 3.9 (2.6-4.0) g/dL Albumin/Globulin Ratio 0.9 (0.9-1.6) 01/07/19 01/08/19 01/08/19 Range/Units 20:14 01:40 05:07 WBC 11.46 H (4.0-11.0) K/uL RBC 5.11 (4.50-5.90) M/uL Hgb 16.1 (13.0-17.0) g/dL Hct 46.2 (38.0-50.0) % MCV 90.4 (80.0-98.0) fL MCH 31.5 (27.0-32.0) pg MCHC 34.8 (31.0-37.0) g/dL RDW Std Deviation 42.5 (28.0-62.0) fl RDW Coeff of Cyndi 13 (11.0-15.0) % Plt Count 153 (150-400) K/uL MPV 11.40 (7.40-12.00) fL Neut % (Auto) 53.2 (48.0-80.0) % Lymph % (Auto) 35.7 (16.0-40.0) % [place] % (Auto) 10.1 (0.0-15.0) % Eos % (Auto) 0.8 (0.0-7.0) % Baso % (Auto) 0.2 (0.0-1.5) % Neut # (Auto) 6.1 H (1.4-5.7) K/uL Lymph # (Auto) 4.1 H (0.6-2.4) K/uL [place] # (Auto) 1.2 H (0.0-0.8) K/uL Eos # (Auto) 0.1 (0.0-0.7) K/uL Baso # (Auto) 0.0 (0.0-0.1) K/uL Nucleated RBC % 0.0 /100WBC Nucleated RBCs # 0 K/uL Sodium (136-148) mmol/L Potassium (3.5-5.1) mmol/L Chloride (98-107) mmol/L Carbon Dioxide (21.0-32.0) mmol/L BUN (7.0-18.0) mg/dL Creatinine (0.8-1.3) mg/dL Est Cr Clr Drug Dosing mL/min Estimated GFR (MDRD) ml/min Glucose (74-106) mg/dL Calcium (8.5-10.1) mg/dL Magnesium (1.8-2.4) mg/dL Total Bilirubin (0.2-1.0) mg/dL AST (15-37) IU/L ALT (14-63) IU/L Alkaline Phosphatase (46-116) U/L Troponin I < 0.050 < 0.050 (0.000-0.056) ng/mL Total Protein (6.4-8.2) g/dL Albumin (3.4-5.0) g/dL Globulin (2.6-4.0) g/dL Albumin/Globulin Ratio (0.9-1.6) 01/08/19 Range/Units 05:07 WBC (4.0-11.0) K/uL RBC (4.50-5.90) M/uL Hgb (13.0-17.0) g/dL Hct (38.0-50.0) % MCV (80.0-98.0) fL MCH (27.0-32.0) pg MCHC (31.0-37.0) g/dL RDW Std Deviation (28.0-62.0) fl RDW Coeff of Cyndi (11.0-15.0) % Plt Count (150-400) K/uL MPV (7.40-12.00) fL Neut % (Auto) (48.0-80.0) % Lymph % (Auto) (16.0-40.0) % [place] % (Auto) (0.0-15.0) % Eos % (Auto) (0.0-7.0) % Baso % (Auto) (0.0-1.5) % Neut # (Auto) (1.4-5.7) K/uL Lymph # (Auto) (0.6-2.4) K/uL [place] # (Auto) (0.0-0.8) K/uL Eos # (Auto) (0.0-0.7) K/uL Baso # (Auto) (0.0-0.1) K/uL Nucleated RBC % /100WBC Nucleated RBCs # K/uL Sodium 141 (136-148) mmol/L Potassium 4.2 (3.5-5.1) mmol/L Chloride 107 (98-107) mmol/L Carbon Dioxide 23.3 (21.0-32.0) mmol/L BUN 18 (7.0-18.0) mg/dL Creatinine 1.2 (0.8-1.3) mg/dL Est Cr Clr Drug Dosing 76.89 mL/min Estimated GFR (MDRD) > 60.0 ml/min Glucose 131 H (74-106) mg/dL Calcium 8.6 (8.5-10.1) mg/dL Magnesium (1.8-2.4) mg/dL Total Bilirubin (0.2-1.0) mg/dL AST (15-37) IU/L ALT (14-63) IU/L Alkaline Phosphatase (46-116) U/L Troponin I (0.000-0.056) ng/mL Total Protein (6.4-8.2) g/dL Albumin (3.4-5.0) g/dL Globulin (2.6-4.0) g/dL Albumin/Globulin Ratio (0.9-1.6) Med Orders - Current: Current Medications Aspirin (Aspirin) 81 mg PO DAILY [facility] Last Admin: 01/08/19 08:42 Dose: 81 mg Enoxaparin Sodium (Lovenox) 40 mg SUBCUT Q24H [facility] Last Admin: 01/07/19 18:54 Dose: 40 mg Diltiazem HCl 125 mg/ Sodium (Chloride) 125 mls @ 5 mls/hr IV TITRATE [facility]INA; Protocol Levothyroxine Sodium (Synthroid) 50 mcg PO ACBREAKFAST [facility] Last Admin: 01/08/19 06:35 Dose: 50 mcg Metoprolol Succinate (Toprol Xl) 75 mg PO DAILY [facility] Last Admin: 01/08/19 09:01 Dose: Not Given Simvastatin (Zocor) 10 mg PO BEDTIME [facility] Last Admin: 01/07/19 21:23 Dose: 10 mg Sodium Chloride (Saline Flush) 10 ml FLUSH ASDIRECTED PRN PRN Reason: Keep Vein Open Last Admin: 01/07/19 13:12 Dose: 10 ml Sodium Chloride (Saline Flush) 2.5 ml FLUSH ASDIRECTED PRN PRN Reason: Keep Vein Open Last Admin: 01/07/19 13:12 Dose: 2.5 ml Discontinued Medications Digoxin (Lanoxin) 250 mcg IVPUSH ONETIME ONE Stop: 01/07/19 18:18 Last Admin: 01/07/19 18:55 Dose: 250 mcg Diltiazem HCl (Diltiazem) 20 mg IVPUSH ONETIME ONE Stop: 01/07/19 12:39 Last Admin: 01/07/19 13:03 Dose: 20 mg Diltiazem HCl (Diltiazem) 20 mg IVPUSH ONETIME ONE Stop: 01/07/19 14:17 Last Admin: 01/07/19 14:36 Dose: 20 mg Sodium Chloride (Normal Saline) 1,000 mls @ 999 mls/hr IV .BOLUS ONE Stop: 01/07/19 16:45 Last Admin: 01/07/19 15:46 Dose: 999 mls/hr Sodium Chloride (Normal Saline) 1,000 mls @ 125 mls/hr IV .Bolus ONE Stop: 01/08/19 02:17 Last Admin: 01/07/19 20:01 Dose: 125 mls/hr Metoprolol Succinate (Toprol Xl) 100 mg PO DAILY [facility] Metoprolol Tartrate (Lopressor) 25 mg PO ONETIME ONE Stop: 01/07/19 18:19 Last Admin: 01/07/19 18:52 Dose: 25 mg
== END 2019-01-08 11:32 | disposition home or self-care (01) ==
LOC: MW.ED 12:28 → MW.MS 15:19 → MW.ICU 19:30
PROVIDERS: ADMIT Internal Medicine; ATTEND Internal Medicine
DX: I48.0 Paroxysmal atrial fibrillation (principal); G47.30 Sleep apnea, unspecified; Z99.89 Dependence on other enabling machines and devices; Z79.82 Long term (current) use of aspirin; Z79.899 Other long term (current) drug therapy
CPT/HCPCS: 36415; 71045; 80048; 80053; 83735; 84484; 85025; 93005; 96374; 96376; 99285; A9270; J1160; J1650; J3490; J7040; 96372; 96375; 99284; G0378

== ENCOUNTER 2019-02-19 10:27 | Day surgery (SDC) | payer OTHER ==
--- NOTE | 2019-02-19 08:15 | PCM.PRNOTE ---
- Free Text/Narrative Note: PROCEDURE: Direct current cardioversion. REASON FOR PROCEDURE: symptomatic persistent atrial fibrillation. PROCEDURE IN DETAIL: The procedure was explained to the patient with risks and benefits including risk of stroke. The patient verbalized understanding. The patient had already been on anticoagulation including the day of the procedure more than 4 weeks without interruption. The pads applied in the anterior and posterior approach. With synchronized biphasic waveform at 100J, one shock was delivered and it failed converting atrial fibrillation. Then two more attempts of cardioversion with biphasic waveform 200 j was performed. The ryhthm was converted to sinus bradycardia successfully. The patient had no immediate post- procedure complications. The rhythm was maintained and 12-lead EKG was requested. IMPRESSION: Successful direct current cardioversion with church of sinus rhythm from atrial flutter and atrial fibrillation with no immediate complication. Plan 1. post procedure observation for 6 hours 2. continue anticoagulation at least 4 weeks, without interruption 3. I will start him on rythmol 150 TID 4. f/u outpatient
[2019-02-19] MEDS ORDERED: Sodium Chloride 0.9% 1,000 ML IV SCH (10:45)
[2019-02-19] MEDS ORDERED: Midazolam 1 MG/ML 2 ML SDV ONE (11:25)
[2019-02-19] MEDS ORDERED: Propofol 200 MG/20 ML SDV ONE (11:26)
--- NOTE | 2019-02-19 11:36 | PCM.PREANE ---
Preanesthetic Assessment - Anesthesia/Transfusion/Family Hx Anesthesia History: Prior Anesthesia Without Reaction Family History of Anesthesia Reaction: No Transfusion History: No Prior Transfusion(s) - Review of Systems General: No Symptoms Pulmonary: Other (SONYA uses CPAP) Cardiovascular: Palpitations (parox a fib) Gastrointestinal: No Symptoms Neurological: No Symptoms Other: Reports: None - Physical Assessment NPO Status Date: 02/18/19 Height: 5 ft 10 in Weight: 117.48 kg ASA Class: 3 Mental Status: Alert & Oriented x3 Airway Class: Mallampati = 2 Dentition: Reports: Normal Dentition ROM/Head Extension: Full Lungs: Clear to Auscultation, Normal Respiratory Effort Cardiovascular: Regular Rate, Regular Rhythm - Allergies Allergies/Adverse Reactions: Allergies Allergy/AdvReac Type Severity Reaction Status Date / Time No Known Allergies Allergy Verified 01/07/19 12:36 - Blood Blood Available: No - Anesthesia Plan Pre-Op Medication Ordered: None - Acknowledgements Anesthesia Type Planned: General Anesthesia Pt an Appropriate Candidate for the Planned Anesthesia: Yes Alternatives and Risks of Anesthesia Discussed w Pt/Guardian: Yes Pt/Guardian Understands and Agrees with Anesthesia Plan: Yes PreAnesthesia Questionnaire Cardiovascular History: Reports: Afib Respiratory History: Reports: None, Sleep Apnea Other Respiratory History: Uses CPAP Endocrine/Metabolic History: Reports: Hypothyroidism - Infectious Disease History Infectious Disease History: Reports: None - Past Surgical History GI Surgical History: Reports: Appendectomy Musculoskeletal Surgical History: Reports: Other (See Below) Other Musculoskeletal Surgeries/Procedures:: left elbow sx - SUBSTANCE USE Smoking Status *Q: Never Smoker Second Hand Smoke Exposure: No Recreational Drug Use History: No - HOME MEDS Home Medications: Home Meds Metoprolol Succinate [Toprol XL 50mg] 50 mg PO DAILY 30 Days #30 tab.er [Rx] Aspirin 81 mg PO DAILY 01/07/19 [History] Levothyroxine [Synthroid] 50 mcg PO ACBREAKFAST 01/07/19 [History] Simvastatin 10 mg PO BEDTIME 01/07/19 [History] Metoprolol Succinate [Toprol Xl] 25 mg PO DAILY #30 tab.er.24h 01/08/19 [Rx] - CURRENT (IN HOUSE) MEDS Current Meds: Current Medications Sodium Chloride (Normal Saline) 1,000 mls @ 75 mls/hr IV ASDIRECTED TRINA Discontinued Medications Midazolam HCl (Versed 1 Mg/Ml) Confirm Administered Dose 2 mg .ROUTE .STK-MED ONE Stop: 02/19/19 11:26 Propofol (Diprivan 20 Ml) Confirm Administered Dose 200 mg .ROUTE .STK-MED ONE Stop: 02/19/19 11:27
--- NOTE | 2019-02-19 12:52 | PCM48HPAN ---
Post Anesthesia Note - EVALUATION WITHIN 48HRS OF ANESTHETIC Vital Signs in Normal Range: Yes Patient Participated in Evaluation: Yes Respiratory Function Stable: Yes Airway Patent: Yes Cardiovascular Function Stable: Yes Hydration Status Stable: Yes Pain Control Satisfactory: Yes Nausea and Vomiting Control Satisfactory: Yes Mental Status Recovered: Yes - COMMENTS/OBSERVATIONS Free Text/Narrative:: no anesthetic comps
--- NOTE | 2019-02-19 12:53 | PCM.POSTAN ---
POST ANESTHESIA ASSESSMENT - MENTAL STATUS Mental Status: Alert, Oriented - RESPIRATORY Respiratory Status: Respiratory Rate WNL, Airway Patent, O2 Saturation Stable - CARDIOVASCULAR CV Status: Pulse Rate WNL, Blood Pressure Stable - GASTROINTESTINAL GI Status: No Symptoms - POST OP HYDRATION Hydration Status: Adequate & Stable
== END 2019-02-19 14:30 | disposition home or self-care (01) ==
LOC: UNDOADMIN 10:27 → MW.ICU 10:27 → MW.SDS 10:27 → MW.ICU 11:51 → EDSTATUS 12:00 → MW.SDS 14:30
PROVIDERS: ATTEND Internal Medicine
DX: I48.1 Persistent atrial fibrillation (principal); E03.9 Hypothyroidism, unspecified; E78.5 Hyperlipidemia, unspecified; G47.33 Obstructive sleep apnea (adult) (pediatric); Z99.89 Dependence on other enabling machines and devices; Z79.01 Long term (current) use of anticoagulants; Z79.899 Other long term (current) drug therapy
CPT/HCPCS: 93005; J2250; J2704; 00410